=== PATIENT | female | born 1990 | race Caucasian/White ===

== ENCOUNTER → 2016-09-13 | Outpatient (CLI) | payer MEDICAID, OTHER ==
[2016-09-13 14:37] LABS: CONTROL LINE INT CTR LINE PRESENT; HIV SCRN NEGATIVE (NEGATIVE); HIV SCRN1 NEGATIVE (NEGATIVE)
== END ==
LOC: M SMT 10:26
PROVIDERS: ATTEND Advanced Practice Midwife
DX: Z36 Encounter for antenatal screening of mother (principal); Z3A.00 Weeks of gestation of pregnancy not specified

== ENCOUNTER 2016-09-30 23:49 | Emergency (ER) | payer MEDICAID | END 2016-10-01 01:02 | disposition left against medical advice (07) | LOC: M ED 23:49 | DX: O99.89 Other specified diseases and conditions complicating pregnancy, childbirth and the puerperium (principal); R10.9 Unspecified abdominal pain; Z3A.19 19 weeks gestation of pregnancy; Z53.21 Procedure and treatment not carried out due to patient leaving prior to being seen by health care provider ==

== ENCOUNTER 2016-10-01 00:25 | Outpatient (CLI) | payer MEDICAID ==
[~2016-10-01] VITALS: Ht 160 cm; Wt 82.0 kg
[2016-10-01 00:34] VITALS: BP 135/90
== END 2016-10-01 01:31 | disposition home or self-care (01) ==
LOC: M LDO 00:25
PROVIDERS: ATTEND Advanced Practice Midwife
DX: O26.892 Other specified pregnancy related conditions, second trimester (principal); Z3A.19 19 weeks gestation of pregnancy; R10.2 Pelvic and perineal pain

== ENCOUNTER → 2016-10-04 | Outpatient (CLI) | payer MEDICAID ==
--- NOTE | 2016-10-04 15:10 | REP ---
Clinical: Anatomical evaluation. Comparison: 07/06/2016 . Findings: Examination demonstrates a single live intrauterine in variable presentation. motion is identified by technologist. Placenta is noted anteriorly and grade zero without evidence for placenta previa or abruption. Amniotic fluid volume is normal. Cervix measures 4.9 cm in length and appears closed. No evidence for nuchal cord. Gestational age by LMP 20 weeks 0 days with JOCELIN 02/21/2017 . Gestational age by current measurements 19 weeks 4 days with JOCELIN 02/24/2017 . FHR equals 140 so beats per minute. BPD 4.5 cm 19 weeks 5 days HC 16.7 cm 19 weeks 3 days AC 14.4 cm 19 weeks 5 days FL 3.2 cm 20 weeks 0 days HL 3.1 cm 20 weeks 1 day HC/AC ratio 1.17 Estimated weight 314 grams ( 90th percentile). Anatomical assessment demonstrates normal structures including cranium, choroid plexus, cavum, cerebellum/posterior fossa, facial features, lungs, diaphragm, stomach, cord insertion, kidneys/bladder, and extremities. Limited evaluation of the heart, cord, and spine. Impression: Single live intrauterine in variable presentation demonstrating appropriate interval growth. Anatomical limitations as described above may warrant reevaluation and follow-up. Remainder of the anatomical assessment is complete and normal. Signed by Jose Cerna MD 10/04/2016 03:01 P
== END ==
LOC: M SMT 13:41
PROVIDERS: ATTEND Advanced Practice Midwife
DX: Z36 Encounter for antenatal screening of mother (principal); Z3A.20 20 weeks gestation of pregnancy

== ENCOUNTER → 2016-11-08 | Outpatient (CLI) | payer MEDICAID ==
--- NOTE | 2016-11-08 13:24 | REP ---
Clinical: Anatomical evaluation. Comparison: 10/04/2016 . Findings: Examination demonstrates a single live intrauterine in cephalic presentation. motion is identified by technologist. Placenta is noted anteriorly and grade zero without evidence for placenta previa or abruption. Amniotic fluid volume is normal. Cervix measures 4.5 cm in length and appears closed. No evidence for nuchal cord. Gestational age by LMP 25 weeks 0 days with JOCELIN 02/21/2017 . Gestational age by current measurements 24 weeks 60 with JOCELIN based 02/24/2017 . FHR equals 139 beats per minute. Estimated weight 666 grams ( 21st percentile). Anatomical assessment demonstrates normal structures including cranium, choroid plexus, cavum, cerebellum/posterior fossa, facial features, lungs, diaphragm, stomach, cord insertion/three-vessel cord, kidneys/bladder, spine, and extremities. Impression: Single live intrauterine in cephalic presentation demonstrating appropriate interval growth. Limited evaluation of the heart and cardiac ventricular outflow tracts. Anatomical assessment is otherwise complete and normal. Signed by Jose Cerna MD 11/08/2016 01:16 P
== END ==
LOC: M RAD 12:08
PROVIDERS: ATTEND Specialist
DX: Z36 Encounter for antenatal screening of mother (principal); Z3A.25 25 weeks gestation of pregnancy

== ENCOUNTER → 2016-11-30 | Outpatient (CLI) | payer OTHER ==
[2016-11-30 14:33] LABS: BASO % 0.1 % (0.0-1.0); EOS # 0.1 K/mm3 (0.0-0.50); EOS % 0.8 % (0.0-3.0); LARGE UNSTAINED CELL # 0.1 K/mm3 (0.0-0.4); LARGE UNSTAINED CELL % 1.1 % (0.0-4.0); LYMPH # 1.3 K/mm3 (1.5-6.5); LYMPH % 13.7 % (24.0-44.0); MEAN CORPUSCULAR HEMOGLOBIN 31.5 pg (27.0-33.0); MEAN CORPUSCULAR HGB CONC 33.5 g/dl (32.0-36.5); MEAN CORPUSCULAR VOLUME 93.9 fl (80.0-96.0); MONO # 0.5 K/mm3 (0.0-0.8); MONO % 5.2 % (0.0-5.0); NEUTROPHILS # 7.5 K/mm3 (1.8-7.7); NEUTROPHILS % 79.1 % (36.0-66.0); PLATELET COUNT, AUTOMATED 211 k/mm3 (150-450); RED CELL DISTRIBUTION WIDTH 12.7 % (11.5-14.5); WHITE BLOOD COUNT 9.5 K/mm3 (4.0-10.0)
== END ==
LOC: M LAB 12:26
PROVIDERS: ATTEND Specialist
DX: Z34.82 Encounter for supervision of other normal pregnancy, second trimester (principal)

== ENCOUNTER → 2017-01-07 | Outpatient (CLI) | payer OTHER ==
--- NOTE | 2017-01-07 15:38 | REP ---
Clinical: Growth evaluation. Comparison: 11/29/2016 . Findings: Examination demonstrates a single live intrauterine in cephalic presentation. motion is identified by technologist. Placenta is noted anteriorly and grade to without evidence for placenta previa or abruption. Amniotic fluid volume is normal. Cervix measures 3.1 cm in length and appears closed. Nuchal cord cannot be excluded. Gestational age by LMP 33 weeks 4 days with JOCELIN 02/21/2017 . Gestational age by current measurements 32 weeks 4 days with JOCELIN 02/28/2017 . FHR equals 141 beats per minute. BPD 7.9 cm 31 weeks 6 days HC 29.6 cm 32 weeks 5 days AC 28.7 cm 32 weeks 5 days FL 6.5 cm 33 weeks 4 days HL 5.6 cm 32 weeks 2 days HC/AC ratio 1.03 Estimated weight 2067 grams ( 32nd percentile). Amniotic fluid index equals 14.1 cm (8.2 - 24.7). Umbilical cord SD ratio equals 3.08 (2.00 - 3.00). Impression: 1. Single live advanced gestation in cephalic presentation demonstrating appropriate interval growth. 2. Nuchal cord cannot be excluded. Signed by Jose Cerna MD 01/07/2017 03:30 P
== END ==
LOC: M RAD 14:58
PROVIDERS: ATTEND Advanced Practice Midwife
DX: O26.843 Uterine size-date discrepancy, third trimester (principal); Z3A.33 33 weeks gestation of pregnancy

== ENCOUNTER → 2017-02-01 | Outpatient (REF) | payer OTHER | LOC: M LAB REF 17:00 | PROVIDERS: ATTEND Specialist | DX: Z36 Encounter for antenatal screening of mother (principal); Z3A.00 Weeks of gestation of pregnancy not specified ==

== ENCOUNTER 2017-02-28 11:37 | Inpatient (IN) | payer OTHER ==
[~2017-02-28] VITALS: Ht 160 cm; Wt 93.0 kg
[2017-02-28] VITALS (38 sets, daily range): BP systolic 107–144; BP diastolic 57–96
[2017-02-28] MEDS ORDERED: PEPC1TAB2 PO (12:26)
[2017-02-28] MEDS ORDERED: PRENTAB9 PO (12:26)
[2017-02-28 12:36] LABS: MEAN CORPUSCULAR HEMOGLOBIN 32.3 pg (27.0-33.0); MEAN CORPUSCULAR HGB CONC 35.7 g/dl (32.0-36.5); MEAN CORPUSCULAR VOLUME 90.6 fl (80.0-96.0); RED CELL DISTRIBUTION WIDTH 13.6 % (11.5-14.5); WHITE BLOOD COUNT 9.1 K/mm3 (4.0-10.0)
[2017-02-28] MEDS: miSOPROStol 50 MCG 1/2 TAB (S0191) PO SCH ×2 (12:40→16:50)
--- NOTE | 2017-02-28 13:48 | HPE ---
DATE OF ADMISSION: 02/28/2017 HISTORY: 26-year-old 3, para 3-0-0-2 female at 41-0/7 weeks gestation by last menstrual period (LMP) consistent with 7 week ultrasound, estimated date of confinement (EDC) of 02/21/2017, who presents for labor induction. The patient denies contractions or vaginal bleeding. COURSE: Patient initiated care with Flori Mcgee DIGITAL ACCOUNT COORDINATOR. She transferred her care at 19 weeks gestation on 09/27/2016 to [facility]. The remainder of her course was unremarkable. OBSTETRICAL HISTORY: 1. September of 2014, 10 week miscarriage. 2. June of 2015, 10 week miscarriage. MEDICAL HISTORY: Anxiety and depression, no current medicines. SURGICAL HISTORY: 1. [place] teeth removal. 2. Dilatation and curettage procedure time one. ALLERGIES: No known drug allergies. SOCIAL HISTORY: The father of the baby is involved. The patient denies cigarettes, alcohol or drug use. FAMILY HISTORY: The patient had a brother with trisomy 18. She also had a brother with Klinefelter's syndrome. PHYSICAL EXAMINATION: Blood pressure 134/74, pulse 84. She is in no apparent distress. Head and neck exam is normal. Lungs clear. Heart regular rate and rhythm. Abdomen nontender and gravid. heart tones category 1. Sterile vaginal exam 1 cm, 50%, -2 station, posterior vertex, soft. Extremities nontender. LABORATORIES: Blood type A positive. Rubella immune. RPR nonreactive. Hepatitis B and C negative. HIV negative. Diabetes screen 114. Group B Streptococcus (GBS) negative on 02/01/2017. ASSESSMENT: 26-year-old 1 at 41-0/7 weeks gestation who presents for labor induction. The risks of induction were discussed. Patient admitted on 02/28/2017.
[2017-02-28] MEDS ORDERED: FENTANYL 2MCG/ML ROPIVACAINE 0.2% IN 0.9% NACL 200ML IVBAG As Ordered ONE (20:53)
[2017-02-28] MEDS ORDERED: FENTANYL/ROPIVACAINE/NACL BAG 200 ML EPIDURAL SCH (22:15)
[2017-02-28] MEDS ORDERED: EPIDURAL COMMENT XX SCH (22:15)
[2017-02-28] MEDS ORDERED: LACTATED RINGER'S 1000 ML IV PRN (22:15)
[2017-02-28] MEDS ORDERED: OXYTOCIN DRIP 30 UNITS in APPROPRIATE DILUENT 1 EA IV SCH (22:15)
[2017-02-28] MEDS ORDERED: diphenhydrAMINE INJ 50MG/ML VIAL (J1200) IV PRN (22:15)
[2017-02-28] MEDS ORDERED: ONDANSETRON 4MG/2ML VIAL (J2405) IV PRN (22:15)
[2017-02-28] MEDS ORDERED: NALOXONE INJ 0.4 MG/1 ML VIAL (J2310) IV PRN (22:15)
[2017-02-28] MEDS ORDERED: REFRIGERATOR IV KEYS XX PRN (22:15)
[2017-02-28] MEDS ORDERED: EPIDURAL/PCA KEYS XX PRN (22:15)
[2017-02-28] MEDS ORDERED: ePHEDrine SULFATE 25 MG/5 ML(5MG/ML) SYRINGE IV PRN (22:15)
[2017-03-01] VITALS (42 sets, daily range): BP systolic 107–153; BP diastolic 58–83
[2017-03-01] MEDS ORDERED: LR 1,000 ML IV SCH (03:17)
[2017-03-01] MEDS: PRENATAL VITAMINS CHEWABLE TABLET PO SCH (09:00)
[2017-03-01] MEDS ORDERED: OXYTOCIN DRIP 30 UNITS in APPROPRIATE DILUENT 1 EA IV SCH (10:37)
--- NOTE | 2017-03-01 10:41 | DN ---
DATE: 03/01/2017 Chicho is a 26-year-old 3, para 1-0-2-1 now, who was admitted to labor and delivery for induction of labor due to post-term . Misoprostol and IV Pitocin was utilized and labor did ensue. She did utilize an epidural for her labor coping. She progressed to full dilation at 0905 hours. An hour of passive descent was employed. We began then actively pushing second stage. She pushed to a normal spontaneous vaginal delivery of a live female infant in OA position with restitution to LOT position at 1008 hours. There was no nuchal cord. Shoulders delivered spontaneously and the corpus immediately followed. There was terminal meconium noted at the time of delivery. The was placed on the maternal abdomen, crying and active. Her mouth and nares were bulb suctioned. The cord was clamped times two once pulsations ceased and cut by the father of the baby. A spontaneous expulsion of an intact placenta with three-vessel cord by Marks mechanism was at 1014 hours. Uterine hemostasis was achieved with IV Pitocin rapid infusion and uterine fundal massage. Estimated blood loss 300 mL. Perineum and vagina inspected, noted to have a vaginal abrasion. The vaginal abrasion was repaired with #3-0 Rapide in the usual fashion. Diamond female weight is pending. scores of 9 and 9. Mom is named her daughter Servando and that she does plan on her daughter. At the close of delivery, lap counts, needle counts and instrument counts were correct and verified. [facility]
[2017-03-01] MEDS ORDERED: ANUSOL HC CREAM 30GM TOP PRN (10:45)
[2017-03-01] MEDS ORDERED: RHOGAM 300 MCG (1500 IU) INJ (J2790) IM SCH (10:45)
[2017-03-01] MEDS ORDERED: DOCUSATE SODIUM 100 MG CAP PO PRN (10:45)
[2017-03-01] MEDS ORDERED: IBUPROFEN 800 MG TAB PO PRN (10:45)
[2017-03-01] MEDS ORDERED: DIBUCAINE 1% OINTMENT 30GM TOP PRN (10:45)
[2017-03-01] MEDS ORDERED: MEASLES,MUMPS,RUBELLA VACCINE INJ (MMR-II) (90707) SC SCH (10:45)
[2017-03-01] MEDS ORDERED: METHYLERGONOVINE MALEATE 0.2 MG TAB PO PRN (10:45)
[2017-03-01] MEDS: ACETAMINOPHEN 500 MG TAB PO PRN ×2 (14:57→20:47)
[2017-03-02 06:32] VITALS: BP 134/72
[2017-03-02] MEDS: PRENATAL VITAMINS CHEWABLE TABLET PO SCH (08:49)
[2017-03-02 18:07] VITALS: BP 135/84
[2017-03-02] MEDS: ACETAMINOPHEN 500 MG TAB PO PRN (22:14)
[2017-03-03 06:20] VITALS: BP 118/71
[2017-03-03] MEDS: PRENATAL VITAMINS CHEWABLE TABLET PO SCH (10:10)
[2017-03-03] MEDS ORDERED: ACET50TA PO (10:23)
[2017-03-03] MEDS ORDERED: IBUP-1114 PO (10:25)
[2017-03-03] MEDS ORDERED: COLA100C5 PO (10:26)
[2017-03-03] MEDS ORDERED: ANUS2.5C2 TOP (10:27)
[2017-03-03] MEDS ORDERED: NUPE1OIN2 TOP (10:27)
== END 2017-03-03 11:45 | disposition home or self-care (01) | DRG 560 ==
LOC: M LDI 11:37 → M OBS 03-01 12:04
PROVIDERS: ADMIT Specialist; ATTEND Specialist
PROC: 3E0DXGC Introduction of Other Therapeutic Substance into Mouth and Pharynx, External Approach (ICD-10-PCS; 2017-02-28)
PROC: 10907ZC Drainage of Amniotic Fluid, Therapeutic from Products of Conception, Via Natural or Artificial Opening (ICD-10-PCS; 2017-02-28)
PROC: 10E0XZZ Delivery of Products of Conception, External Approach (ICD-10-PCS; principal; 2017-03-01)
PROC: 0HQ9XZZ Repair Perineum Skin, External Approach (ICD-10-PCS; 2017-03-01)
DX: O48.0 Post-term pregnancy (principal); O77.0 Labor and delivery complicated by meconium in amniotic fluid; Z37.0 Single live birth; Z3A.41 41 weeks gestation of pregnancy; Z82.79 Family history of other congenital malformations, deformations and chromosomal abnormalities; O70.0 First degree perineal laceration during delivery

== ENCOUNTER → 2017-10-10 | Outpatient (CLI) | payer OTHER | LOC: M RAD 14:01 | DX: Z32.01 Encounter for pregnancy test, result positive (principal) ==

== ENCOUNTER 2017-11-07 10:56 | Emergency (ER) | payer OTHER ==
[2017-11-07] MEDS: NS 1,000 ML IV (13:02)
[2017-11-07 13:10] LABS: BASO % 0.2 % (0.0-1.0); EOS % 0.5 % (0.0-3.0); HEMATOCRIT 32.6 % (36.0-47.0); HEMOGLOBIN 10.7 g/dl (12.0-16.0); IMMATURE GRANULOCYTE % 0.3 % (0-3.0); LYMPH # 1.5 10^3/uL (1.5-6.5); LYMPH % 16.9 % (24.0-44.0); MEAN CORPUSCULAR HEMOGLOBIN 29.1 pg (27.0-33.0); MEAN CORPUSCULAR HGB CONC 32.8 g/dl (32.0-36.5); MEAN CORPUSCULAR VOLUME 88.6 fl (80.0-96.0); MONO # 0.5 10^3/uL (0.0-0.8); MONO % 5.4 % (0.0-5.0); NEUTROPHILS # 6.8 10^3/uL (1.8-7.7); NEUTROPHILS % 76.7 % (36.0-66.0); PLATELET COUNT, AUTOMATED 350 10^3/uL (150-450); RED BLOOD COUNT 3.68 10^6/uL (4.00-5.40); RED CELL DISTRIBUTION WIDTH 13.2 % (11.5-14.5); WHITE BLOOD COUNT 8.9 10^3/uL (4.0-10.0)
[2017-11-07 13:48] LABS: ANION GAP 6 MEQ/L (8-16); BLOOD UREA NITROGEN 8 MG/DL (7-18); CALCIUM LEVEL 8.6 MG/DL (8.5-10.1); CARBON DIOXIDE LEVEL 25 MEQ/L (21-32); CHLORIDE LEVEL 109 MEQ/L (98-107); CREATININE FOR GFR 0.68 MG/DL (0.55-1.30); GLOMERULAR FILTRATION RATE > 60.0 (>60); GLUCOSE, FASTING 90 MG/DL (70-100); HCG, SERUM QUANTITATIVE 3929 MIU/ML; POTASSIUM SERUM 3.7 MEQ/L (3.5-5.1); SODIUM LEVEL 140 MEQ/L (136-145)
[2017-11-07 14:46] LABS: CHLAMYDIA DNA AMPLIFICATION NEGATIVE (NEGATIVE); GC DNA AMPLIFICATION NEGATIVE (NEGATIVE)
[2017-11-07 17:04] LABS: AMORPHOUS SEDIMENT RFX SMALL (NEGATIVE); KETONE, URINE AUTO RFX TRACE mg/dL (NEGATIVE); MUCUS, URINE RFX SMALL (NEGATIVE); NITRITE, URINE AUTO RFX NEGATIVE (NEGATIVE); RBC, URINE AUTO RFX 48 /HPF (0-3); SPECIFIC GRAVITY UR AUTO RFX 1.012 (1.002-1.035); SQUAM EPITHELIAL CELL UR AURFX 2 /HPF (0-6)
[2017-11-07 17:15] LABS: LEUKOCYTE ESTERASE UR AUTO RFX 1+ (NEGATIVE); WBC, URINE AUTO RFX 16 /HPF (0-3)
== END 2017-11-07 16:39 | disposition home or self-care (01) ==
LOC: M ED 10:56
DX: O02.1 Missed abortion (principal); O99.341 Other mental disorders complicating pregnancy, first trimester; F32.9 Major depressive disorder, single episode, unspecified; F41.9 Anxiety disorder, unspecified
CPT/HCPCS: 76801

== ENCOUNTER 2017-11-09 13:02 | Day surgery (SDC) | payer OTHER ==
[2017-11-09] MEDS: NS 1,000 ML IV ×2 (13:45→14:57)
[2017-11-09 14:57] LABS: BASO % 0.1 % (0.0-1.0); EOS % 0.4 % (0.0-3.0); HEMOGLOBIN 9.6 g/dl (12.0-16.0); IMMATURE GRANULOCYTE % 0.4 % (0-3.0); LYMPH # 1.4 10^3/uL (1.5-6.5); LYMPH % 15.5 % (24.0-44.0); MEAN CORPUSCULAR HEMOGLOBIN 28.8 pg (27.0-33.0); MEAN CORPUSCULAR HGB CONC 33.1 g/dl (32.0-36.5); MEAN CORPUSCULAR VOLUME 87.1 fl (80.0-96.0); MONO # 0.4 10^3/uL (0.0-0.8); MONO % 4.4 % (0.0-5.0); NEUTROPHILS # 7.3 10^3/uL (1.8-7.7); NEUTROPHILS % 79.2 % (36.0-66.0); PLATELET COUNT, AUTOMATED 327 10^3/uL (150-450); RED BLOOD COUNT 3.33 10^6/uL (4.00-5.40); WHITE BLOOD COUNT 9.2 10^3/uL (4.0-10.0)
[2017-11-09] MEDS: KETOROLAC 30 MG/ML VIAL (J1885) IV (14:57)
[2017-11-09 15:39] LABS: ANION GAP 4 MEQ/L (8-16); BLOOD UREA NITROGEN 6 MG/DL (7-18); CALCIUM LEVEL 8.5 MG/DL (8.5-10.1); CARBON DIOXIDE LEVEL 26 MEQ/L (21-32); CHLORIDE LEVEL 110 MEQ/L (98-107); GLOMERULAR FILTRATION RATE > 60.0 (>60); GLUCOSE, FASTING 93 MG/DL (70-100); HCG, SERUM QUANTITATIVE 1859 MIU/ML; POTASSIUM SERUM 4.2 MEQ/L (3.5-5.1); SODIUM LEVEL 140 MEQ/L (136-145)
[2017-11-09] MEDS ORDERED: DOXYCYCLINE HYCLATE 100 MG TAB As Ordered (18:11)
[2017-11-09] MEDS: DOXYCYCLINE HYCLATE 100 MG TAB PO ×2 (18:18→22:35)
[2017-11-09] MEDS ORDERED: PROPOFOL 200 MG/20 ML VIAL As Ordered ×2 (20:24→20:25)
[2017-11-09] MEDS ORDERED: LIDOCAINE 2% INJ 100 MG/5 ML SDV (FOR ANES.) As Ordered (20:24)
[2017-11-09] MEDS ORDERED: MIDAZOLAM INJ 2 MG/2 ML VIAL (J2250) As Ordered (20:31)
[2017-11-09] MEDS ORDERED: fentaNYL 100 MCG/2 ML INJECTION (J3010) As Ordered (20:31)
[2017-11-09] MEDS ORDERED: KETOROLAC 60 MG/2 ML VIAL (J1885) As Ordered (21:01)
[2017-11-09] MEDS ORDERED: ONDANSETRON 4MG/2ML VIAL (J2405) As Ordered ×2 (21:02→21:22)
[2017-11-09] MEDS: miSOPROStol 200 MCG TAB (S0191) As Ordered (21:18)
[2017-11-09] MEDS ORDERED: METOCLOPRAMIDE INJ 10MG/2ML VIAL (J2765) As Ordered (21:22)
[2017-11-09] MEDS: LIDOCAINE 1% SDV INJ 30 ML VIAL As Ordered (21:25)
[2017-11-09] MEDS: SILVER NITRATE APPLICATOR As Ordered (21:26)
[2017-11-09] MEDS: ONDANSETRON 4MG/2ML VIAL (J2405) IV (21:35)
[2017-11-09] MEDS: METOCLOPRAMIDE INJ 10MG/2ML VIAL (J2765) IV (21:35)
[2017-11-09] MEDS ORDERED: LR 1,000 ML IV (21:45)
[2017-11-09] MEDS ORDERED: fentaNYL 100 MCG/2 ML INJECTION (J3010) IV (21:45)
[2017-11-09] MEDS ORDERED: PERCOCET 5MG/325MG TAB PO (21:45)
[2017-11-09] MEDS ORDERED: KETOROLAC 30 MG/ML VIAL (J1885) IV (22:15)
[2017-11-09] MEDS ORDERED: ONDANSETRON 4MG/2ML VIAL (J2405) IV (22:15)
[2017-11-09] MEDS ORDERED: MORPHINE 4 MG/ML 1ML VIAL (J2270) IV (22:15)
== END 2017-11-09 23:03 | disposition home or self-care (01) ==
LOC: M SDC 23:03 → M ED 13:02 → M SDC 17:14
DX: O02.1 Missed abortion (principal)
CPT/HCPCS: 59820